=== PATIENT | male | born 1985 | race Caucasian/White ===

== ENCOUNTER 2018-08-06 18:42 | Emergency (ER) | payer MEDICAID ==
[~2018-08-06] VITALS: Ht 180.3 cm; Wt 89.8 kg
[2018-08-06 18:47] VITALS: Ht 180.3 cm; Wt 89.8 kg
[2018-08-06 21:25] VITALS: BP 141/92
[2018-08-08 11:38] LABS: RAPID PLASMA REAGIN Reactive (Non Reactive)
== END 2018-08-06 21:25 | disposition home or self-care (01) ==
LOC: ED 18:42
PROVIDERS: Emergency Medicine
DX: S05.02XA Injury of conjunctiva and corneal abrasion without foreign body, left eye, initial encounter (principal); L98.499 Non-pressure chronic ulcer of skin of other sites with unspecified severity; X58.XXXA Exposure to other specified factors, initial encounter; Y93.89 Activity, other specified; Y92.89 Other specified places as the place of occurrence of the external cause; Y99.8 Other external cause status
CPT/HCPCS: 86694; 87491; 87591